=== PATIENT | female | born 1970 | race Caucasian/White ===

== ENCOUNTER 2021-08-03 09:19 | Emergency (ER) | payer OTHER, SELFPAY ==
[2021-08-03 09:46] VITALS: BP 133/78; PULSE 96; RESP 18; TEMP 36.6; O2SAT 99; BMI 29.2
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
[2021-08-03] MEDS: Acetaminophen 325 MG TABLET 975 MG PO (10:35)
[2021-08-03] MEDS: Cyclobenzaprine HCl 5 MG TABLET PO (10:35)
[2021-08-03 11:35] LABS: Appearance Urine CLEAR; Color Urine YELLOW; Glucose Urine UA NEG (NEG); Leukocyte Esterase Urine TRACE (NEG); Nitrite Urine POS (NEG); Specific Gravity - Urine 1.025 (1.005-1.025); UACC Culture Trigger YES; Urine Blood NEG (NEG); Urine Ketones NEG (NEG); Urine Protein NEG (NEG-TRACE)
[2021-08-03 12:02] LABS: Bacteria Urine 3+ /LPF; Mucus Urine 2+ /LPF; RBC Urine 0 /HPF (0); Squamous Epithelial Cell Urine 1+ /LPF
== END 2021-08-03 12:13 | disposition home or self-care (01) ==
PROVIDERS: Nurse Practitioner Family; Emergency Provider Emergency Medicine
DX: N39.0 Urinary tract infection, site not specified (principal); M54.16 Radiculopathy, lumbar region; M54.50 Low back pain, unspecified; I10 Essential (primary) hypertension
CPT/HCPCS: 81001; 87086; 87088; 87186; 99283; 99284

== ENCOUNTER 2022-05-25 10:35 | Inpatient (IN) | payer OTHER, SELFPAY ==
--- NOTE | ~2022-05-25 | CT_ITS ---
EXAMINATION: CT ABDOMEN AND PELVIS WITH CONTRAST CLINICAL INFORMATION: Left lower quadrant pain. Diarrhea. Anemia. COMPARISON: None TECHNIQUE: Multidetector volumetric images were obtained from the superior aspect of the liver through the pubic symphysis following administration 85 mL of Omnipaque 350 intravenous contrast. Sagittal and coronal reformatted images were obtained on the technologist's workstation. Oral contrast: No This CT examination was performed using dose optimization techniques as appropriate, variously including the following: *Automated exposure control *Adjustment of mA and/or kV according to patient size (this includes techniques or standardized protocols for targeted exams where dose is matched to indication/reason for exam; i.e. extremities or head) *Use of iterative reconstruction technique DLP: 451 mGy-cm FINDINGS: LUNG BASES: Right basilar atelectasis. The visualized cardiac structures are unremarkable. LIVER, GALLBLADDER, AND BILIARY TREE: The liver is normal in size, shape, and attenuation. No focal hepatic lesion or biliary ductal dilatation is present. The gallbladder is unremarkable with no evidence of radiopaque gallstones, gallbladder wall thickening, or obvious pericholecystic inflammatory changes. PANCREAS: Unremarkable. SPLEEN: The spleen is enlarged measuring 14.3 cm. Multiple hypoattenuating foci are seen throughout the splenic parenchyma. ADRENAL GLANDS: Unremarkable. KIDNEYS AND URETERS: The kidneys are normal in size, shape, and attenuation. No hydronephrosis or hydroureter. Multiple left renal calculi. At least 4 are seen with the largest at the lower pole measuring 0.4 cm, 8.5 cm from the posterior axillary line. BLADDER: Unremarkable. GASTROINTESTINAL TRACT: The stomach is unremarkable. Normal caliber small bowel. No obstruction. Normal appendix. Mild colonic stool burden. Abnormal appearance of the colon involving the descending colon, sigmoid colon, and rectum with wall thickening and inflammation surrounding. This is greatest at the sigmoid colon and rectum. No free air or free fluid. ABDOMINAL WALL: No significant hernia is appreciated. LYMPH NODES: Normal. VASCULAR: Unremarkable. PELVIC VISCERA: The uterus and adnexa are unremarkable. OSSEOUS STRUCTURES: No acute or suspicious osseous abnormality. Mild degenerative changes of the spine and hips. CT/CT abdomen pelvis w IV con IMPRESSION: 1. Colitis involving the descending colon, sigmoid colon, and rectum. This is greatest at the sigmoid colon and rectum. 2. Splenomegaly with multiple hypoattenuating foci throughout the splenic parenchyma. This is nonspecific. In an infectious setting, splenic abscesses must be considered. 3. Nonobstructing left renal calculi. Fleischner guidelines were followed.
--- NOTE | 2022-05-25 11:12 | ED.ABDPAIN ---
HPI - Abdominal Pain General Chief Complaint: Abdominal Pain <RAQUEL Callejas - Last Filed: 05/25/22 11:56> Stated Complaint: l side pain <RAQUEL Callejas - Last Filed: 05/25/22 11:56> Time Seen by Provider: 05/25/22 12:07 <RAQUEL Callejas - Last Filed: 05/25/22 11:56> Source: patient <RAQUEL Woods Last Filed: 05/25/22 15:46> Mode of arrival: ambulatory <RAQUEL Woods Last Filed: 05/25/22 15:46> Limitations: no limitations <RAQUEL Woods Last Filed: 05/25/22 15:46> History of Present Illness HPI narrative: 51 year old female with PMH of asthma, migraine, HTN, hypothyroidism s/p thyroidectomy, herniated disc, sciatica c/o left lower aching abdominal pain associated with mucusy, nonbloody diarrhea for the past week. She reports hypersensitivity to any fluid or food intake which triggers the diarrhea and decreased PO intake. She reports an episode of nausea that resolved and denies any bloody stool,vomiting, fever, headache, sick contact or recent travel. In <RAQUEL Woods - Last Filed: 05/25/22 15:46> MD elicited complaint: abdominal pain <RAQUEL Woods - Last Filed: 05/25/22 15:46> Pertinent past history: none <RAQUEL Woods Last Filed: 05/25/22 15:46> Onset (ago): week(s) (Symptoms started last week) <RAQUEL Woods Last Filed: 05/25/22 15:46> Pain Consistency: intermittent <RAQUEL Woods Last Filed: 05/25/22 15:46> Location: LLQ <RAQUEL Woods Last Filed: 05/25/22 15:46> Severity: moderate <RAQUEL Woods Last Filed: 05/25/22 15:46> Quality: aching <RAQUEL Woods Last Filed: 05/25/22 15:46> Radiation: none <RAQUEL Woods Last Filed: 05/25/22 15:46> Migration to: no migration <RAQUEL Woods Last Filed: 05/25/22 15:46> Exacerbating factors: eating <RAQUEL Woods Last Filed: 05/25/22 15:46> Relieving factors: nothing <RAQUEL Woods Last Filed: 05/25/22 15:46> Associated symptoms: nausea and diarrhea <RAQUEL Woods Last Filed: 05/25/22 15:46> Related Data Home Medications: Previous Rx's Medication Instructions Recorded nitrofurantoin 100 mg PO BID 5 days #10 caps 08/03/21 monohydrate/macrocrystals 100 mg capsule (Macrobid) <RAQUEL Callejas Last Filed: 05/25/22 11:56> Allergies/Adverse Reactions: Allergies Allergy/AdvReac Type Severity Reaction Status Date / Time ibuprofen [From MOTRIN] Allergy Mild ITCHING Verified 08/03/21 09:49 aspirin [ASPIRIN] Allergy Unknown RASH Verified 08/03/21 09:49 SEAFOOD Allergy Unknown RASH Uncoded 03/25/20 18:28 <RAQUEL Callejas Last Filed: 05/25/22 11:56> Review of Systems Review of Systems Constitutional: No Fever, No Chills ENT/Mouth: No sore throat, No Rhinorrhea, No Swallowing Difficulty Eyes: No Eye Pain, No Swelling, No Redness Cardiovascular: No Chest Pain, No SOB, No Orthopnea, No Edema Respiratory: No Cough, No Sputum, No Wheezing, No dyspnea Gastrointestinal: + Nausea, No Vomiting,+ Diarrhea, +abdominal Pain, No Hematochezia, No Melena Genitourinary: No Dysuria, No Urinary Frequency, No Hematuria Musculoskeletal: No joint pain, No Myalgias Skin: No Skin Lesions, No rash Neuro: + Weakness, No Numbness, No Dizziness, No Headache Heme/Lymph: No Bruising, No Lymphadenopathy <RAQUEL Woods Last Filed: 05/25/22 15:46> PMFSH Past Medical History Attestation statement: The following information was validated with the patient. <RAQUEL Woods Last Filed: 05/25/22 15:46> Medical History: Medical History Anxiety Asthma HTN (hypertension) Migraine Thyroid disease <RAQUEL Callejas - Last Filed: 05/25/22 11:56> Social History Social History: Social History Advance Directives: No Advance Directives Information Provided: Yes <RAQUEL Callejas - Last Filed: 05/25/22 11:56> Physical Exam ED Vital Signs: Vital Signs - 24 hr 05/25/22 11:13 Temperature 98.3 F Pulse Rate 90 Respiratory Rate 16 Blood Pressure 106/49 L Pulse Oximetry 99 Oxygen Delivery Method Room Air BMI result Body Mass Index 29.5 <RAQUEL Callejas - Last Filed: 05/25/22 11:56> Vital Signs - 24 hr 05/25/22 11:13 Temperature 98.3 F Pulse Rate 90 Respiratory Rate 16 Blood Pressure 106/49 L Pulse Oximetry 99 Oxygen Delivery Method Room Air BMI result Body Mass Index 29.5 <RAQUEL Woods - Last Filed: 05/25/22 15:46> .Appearance: Alert. Oriented X3.+ Slightly jaundiced in No acute distress. Pale Eyes: Pupils equal, round and reactive to light. No scleral icterua, conjunctival pallor ENT: Pharynx normal. Neck: Normal inspection. Neck supple. CVS: Normal heart rate and rhythm. Pulses normal. Respiratory: No respiratory distress. Breath sounds normal. Abdomen: Soft and non distended, +Guarding, +LLQ abdominal tenderness. +BS x4 Skin: Skin warm and dry.+slightly jaundiced. Normal skin turgor. Extremities: No lower extremity edema. Neuro: Oriented X 3. No motor deficit. No sensory deficit. <RAQUEL Woods - Last Filed: 05/25/22 15:46> Course Course Course Narrative: RME--51yo F c/o LLQ abd pain, vomiting and diarrhea x 1wk with decreased PO intake. No bloody BMs, no fever, dysuria, no flank pain Labs, & UA ordered in triage -1154--received call from lab patient with critically low hematocrit of 20.7 > charge nurse aware <RAQUEL Callejas - Last Filed: 05/25/22 11:56> 51 year old female with PMH of asthma, migraine, HTN, hypothyroidism s/p thyroidectomy, herniated disk , sciatica c/o left lower aching abdominal pain associated with mucussy diarrhea for the past week with decreased PO intake. No bloody BMs, no fever, dysuria, no flank pain Labs, & UA ordered in triage -1154--received call from lab patient with critically low hematocrit of 20.7 > charge nurse aware. labs c/w hemolysis. unclear etiology. check saravanan. Hematology consult. Plan for transfusion and admission Hold off antibiotics for now. Patient agrees with plan. Hospitalist has been tiger [facility] and for admission <RAQUEL Woods - Last Filed: 05/25/22 15:46> Consultations Consultation #1: Hematology Dr. Saldana <RAQUEL Woods - Last Filed: 05/25/22 15:46> Medications Administered Discontinued Medications Generic Name Dose Route Start Last Admin Trade Name Freq PRN Reason Stop Dose Admin Iohexol 100 ml 05/25/22 14:17 05/25/22 14:20 Iohexol 350 Mg/Ml 100 Ml Infus..Btl IV 05/25/22 14:18 85 ml ONCE ONE Administration <RAQUEL Callejas - Last Filed: 05/25/22 11:56> Medications Administered Discontinued Medications Generic Name Dose Route Start Last Admin Trade Name Freq PRN Reason Stop Dose Admin Iohexol 100 ml 05/25/22 14:17 05/25/22 14:20 Iohexol 350 Mg/Ml 100 Ml Infus..Btl IV 05/25/22 14:18 85 ml ONCE ONE Administration <RAQUEL Woods - Last Filed: 05/25/22 15:46> MDM - Abdominal Pain MDM Narrative Medical decision making narrative: 51 year old female with PMH of asthma, migraine, HTN, hypothyroidism s/p thyroidectomy, herniated catie , sciatica c/o left lower aching abdominal pain associated with mucussy diarrhea for the past week. She reports hypersensitivity to any fluid or food intake which triggers the diarrhea and decreased PO intake. On exam ,VSS, lung CTA, LLQ tenderness on palpation, slightly jaundice. Concern for colitis vs Diverticulitis. Plan: CT abdomen, Labs, Occult blood <RAQUEL Woods - Last Filed: 05/25/22 15:46> Medical Records Attestation: I reviewed the patient's medical records. <RAQUEL Woods - Last Filed: 05/25/22 15:46> Lab Data Attestation: I reviewed the patient's lab results. <RAQUEL Woods - Last Filed: 05/25/22 15:46> Result diagrams: : 05/25/22 11:22 05/25/22 11:22 <RAQUEL Callejas - Last Filed: 05/25/22 11:56> Labs: Lab Results 05/25/22 05/25/22 05/25/22 Range/Units 11: 11:22 14:46 WBC 4.6 L (4.8-10.8) X10*3/uL RBC 1.79 L (4.20-5.50) X10*6/uL Hgb 7.4 L (12.0-16.0) g/dl Hct 20.7 L* (37.0-47.0) % MCV 115.6 H (80.0-98.0) fL MCH 41.3 H (27.0-33.0) pg MCHC 35.7 H (31.0-35.0) g/dl RDW 18.7 H (11.0-16.0) % Plt Count 139 L (160-400) X10*3/uL MPV 10.7 (9.4-12.3) fL Immature Gran % (Auto) 1.5 H (0.0-0.4) % Neut % (Auto) 56.5 (45-73) % Lymph % (Auto) 31.9 (20-40) % [place] % (Auto) 5.6 (2-11) % Eos % (Auto) 4.3 H (0-4) % Baso % (Auto) 0.2 (0-2) % Lymph # (Auto) 1.5 (1.2-4.9) X10*3/uL [place] # (Auto) 0.3 (0.1-1.2) X10*3/uL Eos # (Auto) 0.2 (0.0-0.4) X10*3/uL Baso # (Auto) 0.0 (0.0-0.2) X10*3/uL Abs Immat Gran (auto) 0.07 H (0.00-0.03) X10*3/uL Absolute Neuts (auto) 2.6 (2.0-8.3) x10*3/uL Absolute Nucleated RBC 0.050 H (0.0-0.012) X10*3/uL Nucleated RBC % (auto) 1.1 H (0.0-0.2) /100WBC Absolute Retic 0.068 (0.026-0.095) X10*6/uL Percent Retic 3.7 H (0.5-1.8) % Immature Retic Fraction 21.3 H (3.0-15.9) % Retic Hgb Equivalent 46.8 H (30.0-35.0) pg Sodium 139 (135-145) mmol/L Potassium 4.5 (3.3-5.1) mmol/L Chloride 103 (96-108) mmol/L Carbon Dioxide 27 (22-29) mmol/L Anion Gap 14 (12-20) BUN 16 (9-16) mg/dL Creatinine 1.16 (0.5-1.4) mg/dL Estim Creat Clear Calc 50.4 Estimated GFR 49 Random Glucose 108 (60-115) mg/dL Calcium 9.6 (8.4-10.2) mg/dL Magnesium 1.5 L (1.6-2.6) mg/dL Iron 99 (30-160) mcg/dL TIBC 278 (228-428) mcg/dL % Saturation 36 (15-50) % Unsat Iron Binding 179 ug/dL Total Bilirubin 2.3 H (0.0-1.0) mg/dL Direct Bilirubin 1.1 H (0.0-0.5) mg/dL AST 120 H (5-31) U/L ALT 23 (0-31) U/L Alkaline Phosphatase 65 (39-117) U/L Lactate Dehydrogenase 3152 H (122-220) U/L Total Protein 7.2 (6.5-8.0) g/dL Albumin 4.0 (3.5-5.0) g/dL Lipase 59 (8-78) U/L Blood Type A Positive Antibody Screen NEGATIVE FRED, Polyspecific Positive FRED Work-up Crossmatch See Detail 05/25/22 Range/Units 14:46 WBC (4.8-10.8) X10*3/uL RBC (4.20-5.50) X10*6/uL Hgb (12.0-16.0) g/dl Hct (37.0-47.0) % MCV (80.0-98.0) fL MCH (27.0-33.0) pg MCHC (31.0-35.0) g/dl RDW (11.0-16.0) % Plt Count (160-400) X10*3/uL MPV (9.4-12.3) fL Immature Gran % (Auto) (0.0-0.4) % Neut % (Auto) (45-73) % Lymph % (Auto) (20-40) % [place] % (Auto) (2-11) % Eos % (Auto) (0-4) % Baso % (Auto) (0-2) % Lymph # (Auto) (1.2-4.9) X10*3/uL [place] # (Auto) (0.1-1.2) X10*3/uL Eos # (Auto) (0.0-0.4) X10*3/uL Baso # (Auto) (0.0-0.2) X10*3/uL Abs Immat Gran (auto) (0.00-0.03) X10*3/uL Absolute Neuts (auto) (2.0-8.3) x10*3/uL Absolute Nucleated RBC (0.0-0.012) X10*3/uL Nucleated RBC % (auto) (0.0-0.2) /100WBC Absolute Retic (0.026-0.095) X10*6/uL Percent Retic (0.5-1.8) % Immature Retic Fraction (3.0-15.9) % Retic Hgb Equivalent (30.0-35.0) pg Sodium (135-145) mmol/L Potassium (3.3-5.1) mmol/L Chloride (96-108) mmol/L Carbon Dioxide (22-29) mmol/L Anion Gap (12-20) BUN (9-16) mg/dL Creatinine (0.5-1.4) mg/dL Estim Creat Clear Calc Estimated GFR Random Glucose (60-115) mg/dL Calcium (8.4-10.2) mg/dL Magnesium (1.6-2.6) mg/dL Iron (30-160) mcg/dL TIBC (228-428) mcg/dL % Saturation (15-50) % Unsat Iron Binding ug/dL Total Bilirubin (0.0-1.0) mg/dL Direct Bilirubin (0.0-0.5) mg/dL AST (5-31) U/L ALT (0-31) U/L Alkaline Phosphatase (39-117) U/L Lactate Dehydrogenase (122-220) U/L Total Protein (6.5-8.0) g/dL Albumin (3.5-5.0) g/dL Lipase (8-78) U/L Blood Type Antibody Screen FRED, Polyspecific NEGATIVE Positive FRED Work-up TNP Crossmatch <RAQUEL Callejas - Last Filed: 05/25/22 11:56> Lab Results 05/25/22 05/25/22 05/25/22 Range/Units 11:22 11: 14:46 WBC 4.6 L (4.8-10.8) X10*3/uL RBC 1.79 L (4.20-5.50) X10*6/uL Hgb 7.4 L (12.0-16.0) g/dl Hct 20.7 L* (37.0-47.0) % MCV 115.6 H (80.0-98.0) fL MCH 41.3 H (27.0-33.0) pg MCHC 35.7 H (31.0-35.0) g/dl RDW 18.7 H (11.0-16.0) % Plt Count 139 L (160-400) X10*3/uL MPV 10.7 (9.4-12.3) fL Immature Gran % (Auto) 1.5 H (0.0-0.4) % Neut % (Auto) 56.5 (45-73) % Lymph % (Auto) 31.9 (20-40) % [place] % (Auto) 5.6 (2-11) % Eos % (Auto) 4.3 H (0-4) % Baso % (Auto) 0.2 (0-2) % Lymph # (Auto) 1.5 (1.2-4.9) X10*3/uL [place] # (Auto) 0.3 (0.1-1.2) X10*3/uL Eos # (Auto) 0.2 (0.0-0.4) X10*3/uL Baso # (Auto) 0.0 (0.0-0.2) X10*3/uL Abs Immat Gran (auto) 0.07 H (0.00-0.03) X10*3/uL Absolute Neuts (auto) 2.6 (2.0-8.3) x10*3/uL Absolute Nucleated RBC 0.050 H (0.0-0.012) X10*3/uL Nucleated RBC % (auto) 1.1 H (0.0-0.2) /100WBC Absolute Retic 0.068 (0.026-0.095) X10*6/uL Percent Retic 3.7 H (0.5-1.8) % Immature Retic Fraction 21.3 H (3.0-15.9) % Retic Hgb Equivalent 46.8 H (30.0-35.0) pg Sodium 139 (135-145) mmol/L Potassium 4.5 (3.3-5.1) mmol/L Chloride 103 (96-108) mmol/L Carbon Dioxide 27 (22-29) mmol/L Anion Gap 14 (12-20) BUN 16 (9-16) mg/dL Creatinine 1.16 (0.5-1.4) mg/dL Estim Creat Clear Calc 50.4 Estimated GFR 49 Random Glucose 108 (60-115) mg/dL Calcium 9.6 (8.4-10.2) mg/dL Magnesium 1.5 L (1.6-2.6) mg/dL Iron 99 (30-160) mcg/dL TIBC 278 (228-428) mcg/dL % Saturation 36 (15-50) % Unsat Iron Binding 179 ug/dL Total Bilirubin 2.3 H (0.0-1.0) mg/dL Direct Bilirubin 1.1 H (0.0-0.5) mg/dL AST 120 H (5-31) U/L ALT 23 (0-31) U/L Alkaline Phosphatase 65 (39-117) U/L Lactate Dehydrogenase 3152 H (122-220) U/L Total Protein 7.2 (6.5-8.0) g/dL Albumin 4.0 (3.5-5.0) g/dL Lipase 59 (8-78) U/L Blood Type A Positive Antibody Screen NEGATIVE FRED, Polyspecific Positive FRED Work-up Crossmatch See Detail 05/25/22 Range/Units 14:46 WBC (4.8-10.8) X10*3/uL RBC (4.20-5.50) X10*6/uL Hgb (12.0-16.0) g/dl Hct (37.0-47.0) % MCV (80.0-98.0) fL MCH (27.0-33.0) pg MCHC (31.0-35.0) g/dl RDW (11.0-16.0) % Plt Count (160-400) X10*3/uL MPV (9.4-12.3) fL Immature Gran % (Auto) (0.0-0.4) % Neut % (Auto) (45-73) % Lymph % (Auto) (20-40) % [place] % (Auto) (2-11) % Eos % (Auto) (0-4) % Baso % (Auto) (0-2) % Lymph # (Auto) (1.2-4.9) X10*3/uL [place] # (Auto) (0.1-1.2) X10*3/uL Eos # (Auto) (0.0-0.4) X10*3/uL Baso # (Auto) (0.0-0.2) X10*3/uL Abs Immat Gran (auto) (0.00-0.03) X10*3/uL Absolute Neuts (auto) (2.0-8.3) x10*3/uL Absolute Nucleated RBC (0.0-0.012) X10*3/uL Nucleated RBC % (auto) (0.0-0.2) /100WBC Absolute Retic (0.026-0.095) X10*6/uL Percent Retic (0.5-1.8) % Immature Retic Fraction (3.0-15.9) % Retic Hgb Equivalent (30.0-35.0) pg Sodium (135-145) mmol/L Potassium (3.3-5.1) mmol/L Chloride (96-108) mmol/L Carbon Dioxide (22-29) mmol/L Anion Gap (12-20) BUN (9-16) mg/dL Creatinine (0.5-1.4) mg/dL Estim Creat Clear Calc Estimated GFR Random Glucose (60-115) mg/dL Calcium (8.4-10.2) mg/dL Magnesium (1.6-2.6) mg/dL Iron (30-160) mcg/dL TIBC (228-428) mcg/dL % Saturation (15-50) % Unsat Iron Binding ug/dL Total Bilirubin (0.0-1.0) mg/dL Direct Bilirubin (0.0-0.5) mg/dL AST (5-31) U/L ALT (0-31) U/L Alkaline Phosphatase (39-117) U/L Lactate Dehydrogenase (122-220) U/L Total Protein (6.5-8.0) g/dL Albumin (3.5-5.0) g/dL Lipase (8-78) U/L Blood Type Antibody Screen FRED, Polyspecific NEGATIVE Positive FRED Work-up TNP Crossmatch <RAQUEL Woods - Last Filed: 05/25/22 15:46> Critical Care Time Critical Care Time Critical Care Time: Yes <RAQUEL Woods - Last Filed: 05/25/22 15:46> Total Critical Care Time: 44 <RAQUEL Woods - Last Filed: 05/25/22 15:46> Attestation: I have personally provided critical care time exclusive of time spent on separately billable procedures. Time includes review of lab data, radiology results, discussion with consultants, and monitoring for potential decompensation. Intervention performed as documented. <RAQUEL Woods Last Filed: 05/25/22 15:46> Discharge Plan Discharge Clinical Impression: Hemolytic anemia, Colitis <RAQUEL Callejas Last Filed: 05/25/22 11:56> Patient Disposition: Admitted As Inpatient <RAQUEL Callejas Last Filed: 05/25/22 11:56> Prescriptions: No Action nitrofurantoin monohyd/m-cryst [Macrobid] 100 mg capsule 100 mg PO BID 5 Days Qty: 10 0RF Rx Instructions: must administer with a meal/food <RAQUEL Callejas - Last Filed: 05/25/22 11:56>
[2022-05-25 11:13] VITALS: BP 106/49; PULSE 90; RESP 16; TEMP 36.8; O2SAT 99; BMI 29.5
[2022-05-25 11:35] LABS: MANUAL DIFF FLAG NO
[2022-05-25 11:49] LABS: Basophils Percent Auto 0.2 % (0-2); Eosinophils Absolute Auto 0.2 X10*3/uL (0.0-0.4); Eosinophils Percent Auto 4.3 % (0-4); Hemoglobin 7.4 g/dl (12.0-16.0); Imm Gran Abs Auto 0.07 X10*3/uL (0.00-0.03); Imm Gran Pct Auto 1.5 % (0.0-0.4); Lymphocytes Absolute Auto 1.5 X10*3/uL (1.2-4.9); Lymphocytes Percent Auto 31.9 % (20-40); Mean Corpuscular HGB Conc 35.7 g/dl (31.0-35.0); Mean Corpuscular Hemoglobin 41.3 pg (27.0-33.0); Mean Platelet Volume 10.7 fL (9.4-12.3); Monocytes Absolute Auto 0.3 X10*3/uL (0.1-1.2); Monocytes Percent Auto 5.6 % (2-11); Neutrophils Absolute Auto 2.6 x10*3/uL (2.0-8.3); Neutrophils Percent Auto 56.5 % (45-73); Platelet Count 139 X10*3/uL (160-400); Red Blood Count 1.79 X10*6/uL (4.20-5.50); Red Cell Distribution Width 18.7 % (11.0-16.0); White Blood Count 4.6 X10*3/uL (4.8-10.8)
[2022-05-25 11:53] LABS: Hematocrit 20.7 % (37.0-47.0); Mean Corpuscular Volume 115.6 fL (80.0-98.0); NRBC Pct Auto 1.1 /100WBC (0.0-0.2)
[2022-05-25 11:59] LABS: Alanine Aminotransferase 23 U/L (0-31); Alkaline Phosphatase 65 U/L (39-117); Anion Gap 14 (12-20); Aspartate Amino Transferase 120 U/L (5-31); Bilirubin Direct 1.1 mg/dL (0.0-0.5); Bilirubin Total 2.3 mg/dL (0.0-1.0); Blood Urea Nitrogen 16 mg/dL (9-16); Calcium 9.6 mg/dL (8.4-10.2); Carbon Dioxide 27 mmol/L (22-29); Chloride 103 mmol/L (96-108); Creatinine Clr Calc Pharmacy 50.4; Estimated Glomerular Filt Rate 49; Glucose Random 108 mg/dL (60-115); Lipase 59 U/L (8-78); Magnesium 1.5 mg/dL (1.6-2.6); Potassium 4.5 mmol/L (3.3-5.1); Sodium 139 mmol/L (135-145); Total Protein 7.2 g/dL (6.5-8.0)
[2022-05-25 12:32] LABS: Immature Retic Fraction 21.3 % (3.0-15.9); Iron 99 mcg/dL (30-160); Percent Iron Saturation 36 % (15-50); Retic HGB Equivalent 46.8 pg (30.0-35.0); Reticulocyte Percent 3.7 % (0.5-1.8); Reticulocytes Absolute 0.068 X10*6/uL (0.026-0.095); Total Iron Binding Capacity 278 mcg/dL (228-428); Unsaturated Iron Binding 179 ug/dL
[2022-05-25 13:13] LABS: Lactate Dehydrogenase 3152 U/L (122-220)
[2022-05-25] MEDS: iohexoL 350 MG/ML 100 ML INFUS..BTL IV (14:20)
[2022-05-25 15:48] LABS: C Reactive Protein 2.04 mg/dL (< or = 0.50)
--- NOTE | 2022-05-25 16:01 | PHA.MEDREC ---
Pharmacy Consult ? Medication Reconciliation Pharmacy has completed the medication reconciliation.
[2022-05-25] MEDS: Magnesium Sulfate/H2O 2 GM/50 ML PIGGYBACK IV (16:57)
[2022-05-25 16:59] VITALS: BP 110/56; PULSE 91; RESP 13; O2SAT 98
--- NOTE | 2022-05-25 17:05 | P.HPHOSP_ITS ---
History of Present Illness Date of Service: 05/25/22 Attending physician on admission: John Lott Chief Complaint: abdominal pain / nonbloody diarrhea 51-year-old female patient with past medical history of asthma, migraine, hypertension, hypothyroidism, history of iron deficiency anemia, status post thyroidectomy, history of sciatica presented to [facility] due to left lower quadrant abdominal pain of 1 day duration associated with nausea, and mucousy nonbloody diarrhea patient is unable to keep any food down due to recurrent episodes of diarrhea she denies associated fever, chills, rigors she denies any sick contacts she denies recent history of travel, denies recent use of antibiotics, patient lives at home with family, no other family member with similar symptoms, workup in the emergency room showed significant anemia hemoglobin 7.4, hematocrit 20.7, MCV 115, elevated retic count, normal iron studies, magnesium 1.5, LDH 3152, AST 120, total bili 2.3, CT abdomen and pelvis showed colitis involving the descending colon, sigmoid colon and rectum, splenomegaly with multiple hypoattenuating foci throughout the splenic parenchyma nonspecific, splenic abscesses can be considered, nonobstructing left renal calculi no adenopathy was noted, 1 unit of packed RBC ordered by ED physician patient is now being admitted to [facility] due to colitis, likely hemolytic anemia as well as splenic lesion concerning for infection. Review of Systems Review of Systems: General no headache no dizziness no fever chills. CVS no chest pain, no palpitation. Respiratory no cough no sputum production no respiratory distress. no urinary urgency no frequency Skin no rash Yes all other systems are reviewed and are negative PMFSH Medical History Anxiety Asthma HTN (hypertension) Migraine Thyroid disease Pertinent family history: GI mother of kidney failure, father is alive has seizure disorder Social History Alcohol intake: never Smoked in Last 30 Days: No Use of substances other than those prescribed or required for medical reasons: No Advance Directives: No Advance Directives Information Provided: Yes service: No Current occupational status: disabled Meds Allergies Allergy/AdvReac Type Severity Reaction Status Date / Time ibuprofen [From MOTRIN] Allergy Mild ITCHING Verified 08/03/21 09:49 aspirin [ASPIRIN] Allergy Unknown RASH Verified 08/03/21 09:49 SEAFOOD Allergy Unknown RASH Uncoded 03/25/20 18:28 Active Medications: Current Medications Acetaminophen (Acetaminophen 325 Mg Tablet) 650 mg PO Q6H PRN PRN Reason: Pain, Mild (Pain Scale 1-3) Magnesium Sulfate (Magnesium Sulfate/H2o) 2 gm in 50 mls @ 25 mls/hr IV ONCE ONE Stop: 05/25/22 17:47 Last Admin: 05/25/22 16:57 Dose: 25 mls/hr Lactated Ringer's (Lr) 1,000 mls @ 100 mls/hr IVCONT .Q10H [facility] Levofloxacin (Levaquin) 500 mg in 100 mls @ 100 mls/hr IV Q24H [facility] Metronidazole (Flagyl) 500 mg in 100 mls @ 100 mls/hr IV Q8H [facility] Levothyroxine Sodium (Levothyroxine Sodium 125 Mcg Tablet) 125 mcg PO DAILY [facility] Melatonin (Melatonin 3 Mg Tablet) 3 mg PO BEDTIME PRN PRN Reason: Insomnia Morphine Sulfate (Morphine Sulfate 4 Mg/Ml Cartridge) 3 mg IVPUSH Q4H PRN; Protocol PRN Reason: Pain, Severe (Pain Scale 7-10) Ondansetron HCl (Ondansetron Hcl 4 Mg/2 Ml Vial) 4 mg IVPUSH Q8H PRN PRN Reason: Nausea and Vomiting Pharmacy Consult (Consult Rx Perform Med Rec) 1 each MISCELLANE ONCE PRN PRN Reason: Consult order Propranolol HCl (Propranolol Hcl La 60 Mg Cap.Sa.24h) 120 mg PO DAILY [facility]; Protocol Sodium Chloride (0.9 % Sodium Chloride Flush 3 Ml Syringe) 3 ml IVFLUSH QSHIFT [facility] Home Medications Medication Instructions Recorded Confirmed Last Taken Type levothyroxine 125 mcg tablet 1 tab PO DAILY 05/25/22 05/25/22 05/25/22 History multivitamin 1 tab PO DAILY 05/25/22 05/25/22 05/25/22 History propranolol 120 mg capsule,24 1 cap PO DAILY 05/25/22 05/25/22 05/25/22 History hr,extended release Physical Exam Vital Signs and Narrative: Vital Signs: Last Vital Signs Temp 98.3 F 05/25/22 11:13 Pulse 91 05/25/22 16:59 Resp 13 05/25/22 16:59 BP 110/56 L 05/25/22 16:59 Pulse Ox 98 05/25/22 16:59 O2 Del Method 05/25/22 16:59 BMI result Body Mass Index 29.5 Const: Other: General awake alert x3, in no acute distress. anicteric sclera Neck is supple no JVD. CVS regular rate rhythm, Respiratory lungs clear to auscultation, no respiratory distress, no wheeze, no rhonchi. Gastrointestinal abdomen soft, positive tenderness left lower quadrant with palpation, bowel sounds audible, no guarding , no rigidity. Extremities no edema. Neuro nonfocal patient moving all 4 extremity speech clear. Skin no rash/+ pallor musculoskeletal no deformity Results Labs CBC and Chem 7: 05/26/22 05:44 05/26/22 05:44 Labs: Laboratory Results - last 24 hr 05/25/22 05/25/22 05/25/22 11:22 11:22 14:46 MCV 115.6 H MCH 41.3 H MCHC 35.7 H RDW 18.7 H Plt Count 139 L MPV 10.7 Immature Gran % (Auto) 1.5 H Neut % (Auto) 56.5 Lymph % (Auto) 31.9 [place] % (Auto) 5.6 Eos % (Auto) 4.3 H Baso % (Auto) 0.2 Lymph # (Auto) 1.5 [place] # (Auto) 0.3 Eos # (Auto) 0.2 Baso # (Auto) 0.0 Abs Immat Gran (auto) 0.07 H Absolute Neuts (auto) 2.6 Absolute Nucleated RBC 0.050 H Nucleated RBC % (auto) 1.1 H Absolute Retic 0.068 Percent Retic 3.7 H Immature Retic Fraction 21.3 H Retic Hgb Equivalent 46.8 H Anion Gap 14 Estim Creat Clear Calc 50.4 Estimated GFR 49 Random Glucose 108 Calcium 9.6 Magnesium 1.5 L Iron 99 TIBC 278 % Saturation 36 Unsat Iron Binding 179 Total Bilirubin 2.3 H Direct Bilirubin 1.1 H AST 120 H ALT 23 Alkaline Phosphatase 65 Lactate Dehydrogenase 3152 H C-Reactive Protein 2.04 H Total Protein 7.2 Albumin 4.0 Lipase 59 Blood Type A Positive Antibody Screen NEGATIVE FRED, Polyspecific Positive FRED Work-up Crossmatch See Detail 05/25/22 14:46 MCV MCH MCHC RDW Plt Count MPV Immature Gran % (Auto) Neut % (Auto) Lymph % (Auto) [place] % (Auto) Eos % (Auto) Baso % (Auto) Lymph # (Auto) [place] # (Auto) Eos # (Auto) Baso # (Auto) Abs Immat Gran (auto) Absolute Neuts (auto) Absolute Nucleated RBC Nucleated RBC % (auto) Absolute Retic Percent Retic Immature Retic Fraction Retic Hgb Equivalent Anion Gap Estim Creat Clear Calc Estimated GFR Random Glucose Calcium Magnesium Iron TIBC % Saturation Unsat Iron Binding Total Bilirubin Direct Bilirubin AST ALT Alkaline Phosphatase Lactate Dehydrogenase C-Reactive Protein Total Protein Albumin Lipase Blood Type Antibody Screen FRED, Polyspecific NEGATIVE Positive FRED Work-up TNP Crossmatch Imaging Radiologist's Impressions: Impressions Abdomen/Pelvis CT 05/25/22 14:24 IMPRESSION: 1. Colitis involving the descending colon, sigmoid colon, and rectum. This is greatest at the sigmoid colon and rectum. 2. Splenomegaly with multiple hypoattenuating foci throughout the splenic parenchyma. This is nonspecific. In an infectious setting, splenic abscesses must be considered. 3. Nonobstructing left renal calculi. Fleischner guidelines were followed. Assessment and Plan (1) Hemolytic anemia: Status: Acute (2) Colitis: Status: Acute (3) Pancytopenia: Status: Acute Plan 51-year-old female patient with past medical history significant for anxiety, asthma, hypertension, migraine, thyroid disease and prior history of iron deficiency anemia previously treated with shovel mechanic at [facility] and has received iron infusion, last iron studies in June 2021 were unremarkable, last hematocrit was 37.3 in June of 2021 presented to [facility] due to left lower quadrant abdominal discomfort associated with nausea and bloody diarrhea of 1 week duration, diagnosed to have colitis, lab work s uggestive of significant a anemia with low WBC and platelet count with elevated LDH, retic count and bilirubin concerning for hemolysis patient will be admitted for continued monitoring and treatment acute anemia/ pancytopenia no active bleeding noted, patient denies bloody diarrhea no melena, no hematochezia , no hematemesis,no hematuria elevated bili, LDH and retic count suggestive of hemolysis question secondary to infection, immune mediated, rule out DIC haptoglobin ,carl test pending, will check B12 folate, iron studies within normal range will transfuse 1 unit of packed RBC repeat CBC and transfuse as needed patient denies new medications hematology consult obtained acute colitis will treat with IV Levaquin and Flagyl follow blood cultures and clinical course closely multiple hypo attenuated lesions and spleen concerning for abscess continue IV Flagyl and Levaquin as above, check stool studies, id consult, CT abdomen and pelvis showed no lymphadenopathy suggestive of lymphoma id consult elevated LFTs question due to infection, follow liver panel discuss further testing with ID mild intermittent asthma no acute exacerbation hypothyroidism continue Synthroid DVT prophylaxis with compression boots Code status full code in my clinical opinion patient will need 2 night inpatient stay due to acute colitis requiring IV antibiotic and further workup for pancytopenia and profound anemia requiring blood transfusion. Quality Stroke Does the patient have a stroke diagnosis?: No VTE Prior VTE?: No VTE Risk Level:: Medical - moderate - high VTE Device Contraindication: N/A - Device Ordered VTE Drug Contraindication: Treatment Not Indicated
[2022-05-25 17:14] LABS: COVID-19 Test Negative (Negative); IDNOW Serial# 16C4AD1C
[2022-05-25 17:28] VITALS: BP 112/62; PULSE 90; RESP 12; TEMP 37
[2022-05-25 17:36] LABS: Color Urine Dark Yellow; Glucose Urine UA Negative (Negative); Leukocyte Esterase Urine Large (3+) (Negative); Nitrite Urine Positive (Negative); PH 5.5 (5.0-9.0); Specific Gravity - Urine 1.015 (1.005-1.025); UMIC TRIGGER UACC YES; Urine Blood Trace (Negative); Urine Ketones Negative (Negative); Urine Protein 30 (1+) mg/dL (Neg-Trace)
[2022-05-25 17:38] LABS: Bacteria Urine 4+ (None Seen); Squamous Epithelial Cell Urine 0-2 /HPF (0-2); UACC Culture Trigger YES; WBC Urine >50 /HPF (0-5)
[2022-05-25 17:39] LABS: Appearance Urine Hazy
[2022-05-25 17:46] VITALS: BP 104/58; PULSE 89; RESP 12; TEMP 37
[2022-05-25] MEDS: levoFLOXacin/D5W 500 MG/100 ML PIGGYBACK 100 MG IV (18:44)
--- NOTE | 2022-05-25 20:01 | PC.NURSE ---
blood transfusion complete @2000. patient disconnected from bus monitor and assisted to bathroom with this RN. patient steady on her feet, ambulatory with steady gait. denies dizziness or lightheadedness, reports feeling great after this blood transfusion. will obtain vital signs when patient returns from bathroom and is reconnected to monitor.
[2022-05-25 20:05] VITALS: BP 116/69; PULSE 93; RESP 15; TEMP 36.8
[2022-05-25] MEDS: metroNIDAZOLE/NS 500 MG/100 ML PIGGYBACK 100 MG IV (20:08)
[2022-05-25] MEDS: Lactated Ringers 1,000 ML 100 ML IVCONT (20:09)
--- NOTE | 2022-05-25 22:25 | PC.NURSE ---
patient ambulatory to the bathroom. gait steady. able to make needs known. educated to use call bansal and wait for assistance before getting out of bed. verbalized understanding.
[2022-05-25 23:36] VITALS: BP 113/64; PULSE 86; RESP 24; TEMP 36.3; O2SAT 98
[2022-05-26] VITALS (13 sets, daily range): BP systolic 103–131; BP diastolic 60–76; PULSE 78–85; RESP 16–21; TEMP 36–37.1; O2SAT 95–99
[2022-05-26] MEDS: metroNIDAZOLE/NS 500 MG/100 ML PIGGYBACK 100 MG IV ×3 (05:47→20:09)
[2022-05-26] MEDS: Lactated Ringers 1,000 ML 100 ML IVCONT ×2 (05:47→17:33)
--- NOTE | 2022-05-26 05:53 | PC.NURSE ---
patient awake, alert, oriented x4. watching tv in bed. denies pain at this time. call bansal within reach, able to make needs known.
[2022-05-26 07:26] LABS: Hemoglobin 7.3 g/dl (12.0-16.0); Mean Corpuscular HGB Conc 34.8 g/dl (31.0-35.0); Mean Corpuscular Hemoglobin 38.4 pg (27.0-33.0); Mean Corpuscular Volume 110.5 fL (80.0-98.0); Mean Platelet Volume 10.4 fL (9.4-12.3); NRBC Pct Auto 0.7 /100WBC (0.0-0.2); Platelet Count 110 X10*3/uL (160-400); Red Cell Distribution Width 23.2 % (11.0-16.0); White Blood Count 2.8 X10*3/uL (4.8-10.8)
[2022-05-26] MEDS: Propranolol HCL LA 60 MG CAP.SA.24H 120 MG PO (07:37)
[2022-05-26] MEDS: Levothyroxine Sodium 125 MCG TABLET PO (07:37)
[2022-05-26 08:17] LABS: Anion Gap 10 (12-20); Blood Urea Nitrogen 13 mg/dL (9-16); Calcium 9.2 mg/dL (8.4-10.2); Carbon Dioxide 27 mmol/L (22-29); Chloride 108 mmol/L (96-108); Creatinine Clr Calc Pharmacy 58.5; Estimated Glomerular Filt Rate 58; Glucose Random 75 mg/dL (60-115); Potassium 4.4 mmol/L (3.3-5.1); Sodium 141 mmol/L (135-145)
[2022-05-26 08:32] LABS: Fibrinogen 485 MG/DL (259-690)
[2022-05-26 08:34] LABS: D Dimer High Sensitivity 2152 NG/ML; Partial Thromboplastin Time 31.7 SEC (26.0-36.4)
--- NOTE | 2022-05-26 08:45 | PC.NURSE ---
Dr Lott aware of HCT states she will transfuse.
[2022-05-26 11:15] LABS: Alanine Aminotransferase 18 U/L (0-31); Albumin Level 3.3 g/dL (3.5-5.0); Alkaline Phosphatase 52 U/L (39-117); Aspartate Amino Transferase 86 U/L (5-31); Bilirubin Direct 0.9 mg/dL (0.0-0.5); Bilirubin Total 1.8 mg/dL (0.0-1.0); Magnesium 1.8 mg/dL (1.6-2.6); Total Protein 6.2 g/dL (6.5-8.0)
--- NOTE | 2022-05-26 11:42 | MHC.CM.PN ---
Patient lives in an apartment with her and she required no services nor DME BUSINESS TRAVEL CONSULTANT. Home, self care is the goal and CM has initiated and will follow for dc planning. PCP is Dr. Gary Pitts and Patient received J&J/Covid vax only.
[2022-05-26 11:59] LABS: Folate 17.3 ng/mL (> or = 4.0); Vitamin B12 < 148 pg/mL (200-900)
--- NOTE | 2022-05-26 14:52 | HO.PM.IMPN ---
Subjective Subjective Date of Service: 05/26/22 Interval History: feeling better, left lower quadrant abdominal pain significantly improved diarrhea resolved denies fever chills, no nausea no vomiting no headache no lightheadedness or dizziness requesting to eat food, feels better after blood transfusion. Review of Systems Review of Systems: Yes all other systems are reviewed and are negative Physical Exam Vital Signs: Vital Signs: Last Vital Signs Temp 98.4 F 05/26/22 14:39 Pulse 78 05/26/22 14:39 Resp 16 05/26/22 14:39 BP 104/68 05/26/22 14:39 Pulse Ox 98 05/26/22 14:39 O2 Del Method 05/26/22 14:39 BMI result Body Mass Index 29.5 Const: Other: General? awake sonal rt x3, in no acute distress.? anicte chetna sclera Neck is supple no JVD. CV S? regular rate rh ythm, Respiratory lungs clear to aus cultation, no resp iratory distress, no wheeze, no rhon chi. Gastrointesti nal abdomen soft,? mild tenderness le ft lower quadrant with palpation, bela wel sounds audible , no guarding , no rigidity. Extremi ties no edema. Veronika ro nonfocal patien t moving all 4 ext remity speech tao r. Skin no rash/+? pallor musculoske letal no deformity psych appropriat e affect Objective Data Active Medications Acetaminophen (Acetaminophen 325 Mg Tablet) 650 mg PO Q6H PRN PRN Reason: Pain, Mild (Pain Scale 1-3) Levofloxacin (Levaquin) 500 mg in 100 mls @ 100 mls/hr IV Q24H [facility] Last Infusion: 05/25/22 19:44 Dose: 0 mls/hr Documented By: SERENA Metronidazole (Flagyl) 500 mg in 100 mls @ 100 mls/hr IV Q8H [facility] Last Infusion: 05/26/22 06:54 Dose: 100 mls/hr Documented By: SWATI Lactated Ringer's (Lr) 1,000 mls @ 100 mls/hr IVCONT .Q10H [facility] Last Admin: 05/26/22 05:47 Dose: 100 mls/hr Documented By: SWATI Levothyroxine Sodium (Levothyroxine Sodium 125 Mcg Tablet) 125 mcg PO DAILY [facility] Last Admin: 05/26/22 07:37 Dose: 125 mcg Documented By: MAX Melatonin (Melatonin 3 Mg Tablet) 3 mg PO BEDTIME PRN PRN Reason: Insomnia Morphine Sulfate (Morphine Sulfate 4 Mg/Ml Cartridge) 3 mg IVPUSH Q4H PRN; Protocol PRN Reason: Pain, Severe (Pain Scale 7-10) Ondansetron HCl (Ondansetron Hcl 4 Mg/2 Ml Vial) 4 mg IVPUSH Q8H PRN PRN Reason: Nausea and Vomiting Pharmacy Consult (Consult Rx Perform Med Rec) 1 each MISCELLANE ONCE PRN PRN Reason: Consult order Propranolol HCl (Propranolol Hcl La 60 Mg Cap.Sa.24h) 60 mg PO DAILY [facility]; Protocol Last Admin: 05/26/22 10:46 Dose: Not Given Documented By: MAX Non-Admin Reason: Previously Administered Sodium Chloride (0.9 % Sodium Chloride Flush 3 Ml Syringe) 3 ml IVFLUSH QSHIFT [facility] Last Admin: 05/26/22 09:18 Dose: Not Given Documented By: MAX Non-Admin Reason: IV Running Labs CBC & Chem 7: 05/26/22 05:44 05/26/22 05:44 Labs: Laboratory Results - last 24 hr 05/25/22 05/25/22 05/25/22 11:22 11:22 14:46 MCV MCH MCHC RDW Plt Count MPV Absolute Nucleated RBC Nucleated RBC % (auto) Smear Path Review SEE NOTE APTT Fibrinogen D-Dimer High Sensitivty Anion Gap Estim Creat Clear Calc Estimated GFR Random Glucose Calcium Magnesium Total Bilirubin Direct Bilirubin AST ALT Alkaline Phosphatase C-Reactive Protein 2.04 H Total Protein Albumin Vitamin B12 Folate Urine Color Urine Appearance Urine pH Ur Specific Stow Urine Protein Urine Glucose (UA) Urine Ketones Urine Blood Urine Nitrite Ur Leukocyte Esterase Urine RBC Urine WBC Ur Squamous Epith Cells Urine Bacteria Hyaline Casts COVID-19 (JUAREZ) COVID-19 Clin Com Blood Type A Positive Antibody Screen NEGATIVE FRED, Polyspecific Positive FRED Work-up Crossmatch See Detail 05/25/22 05/25/22 05/25/22 14:46 16:51 16:51 MCV MCH MCHC RDW Plt Count MPV Absolute Nucleated RBC Nucleated RBC % (auto) Smear Path Review APTT Fibrinogen D-Dimer High Sensitivty Anion Gap Estim Creat Clear Calc Estimated GFR Random Glucose Calcium Magnesium Total Bilirubin Direct Bilirubin AST ALT Alkaline Phosphatase C-Reactive Protein Total Protein Albumin Vitamin B12 Folate Urine Color Dark Yellow Urine Appearance Hazy Urine pH 5.5 Ur Specific Stow 1.015 Urine Protein 30 (1+) H Urine Glucose (UA) Negative Urine Ketones Negative Urine Blood Trace H Urine Nitrite Positive H Ur Leukocyte Esterase Large (3+) H Urine RBC 6-10 H Urine WBC >50 H Ur Squamous Epith Cells 0-2 Urine Bacteria 4+ Hyaline Casts 3-5 COVID-19 (JUAREZ) Negative COVID-19 Clin Com See Note Blood Type Antibody Screen FRED, Polyspecific NEGATIVE Positive FRED Work-up TNP Crossmatch 05/26/22 05/26/22 05/26/22 05:44 05:44 05:44 MCV 110.5 H D MCH 38.4 H MCHC 34.8 RDW 23.2 H Plt Count 110 L MPV 10.4 Absolute Nucleated RBC 0.020 H Nucleated RBC % (auto) 0.7 H Smear Path Review APTT Fibrinogen D-Dimer High Sensitivty Anion Gap 10 L Estim Creat Clear Calc 58.5 Estimated GFR 58 Random Glucose 75 Calcium 9.2 Magnesium 1.8 Total Bilirubin 1.8 H Direct Bilirubin 0.9 H AST 86 H ALT 18 Alkaline Phosphatase 52 C-Reactive Protein Total Protein 6.2 L Albumin 3.3 L Vitamin B12 < 148 L Folate 17.3 Urine Color Urine Appearance Urine pH Ur Specific Stow Urine Protein Urine Glucose (UA) Urine Ketones Urine Blood Urine Nitrite Ur Leukocyte Esterase Urine RBC Urine WBC Ur Squamous Epith Cells Urine Bacteria Hyaline Casts COVID-19 (JUAREZ) COVID-19 Clin Com Blood Type Antibody Screen FRED, Polyspecific Positive FRED Work-up Crossmatch 05/26/22 08:10 MCV MCH MCHC RDW Plt Count MPV Absolute Nucleated RBC Nucleated RBC % (auto) Smear Path Review APTT 31.7 Fibrinogen 485 D-Dimer High Sensitivty 2152 Anion Gap Estim Creat Clear Calc Estimated GFR Random Glucose Calcium Magnesium Total Bilirubin Direct Bilirubin AST ALT Alkaline Phosphatase C-Reactive Protein Total Protein Albumin Vitamin B12 Folate Urine Color Urine Appearance Urine pH Ur Specific Stow Urine Protein Urine Glucose (UA) Urine Ketones Urine Blood Urine Nitrite Ur Leukocyte Esterase Urine RBC Urine WBC Ur Squamous Epith Cells Urine Bacteria Hyaline Casts COVID-19 (JUAREZ) COVID-19 Clin Com Blood Type Antibody Screen FRED, Polyspecific Positive FRED Work-up Crossmatch Microbiology Microbiology Results: Microbiology 05/25/22 Unknown Urine Culture - Preliminary Urine clean catch - Urine soni top Gram negative tom Assessment and Plan (1) Pancytopenia: Status: Acute (2) Hemolytic anemia: Status: Acute (3) Colitis: Status: Acute (4) Vitamin B12 deficiency: Status: Acute Plan 51-year-old female patient with past medical history significant for anxiety, asthma, hypertension, migraine, thyroid disease and prior history of iron deficiency anemia previously treated with certified procedural coder at [facility] and has received iron infusion, last iron studies in June 2021 were unremarkable, last hematocrit was 37.3 in June of 2021 presented to [facility] due to left lower quadrant abdominal discomfort associated with nausea and bloody diarrhea of 1 week duration, diagnosed to have colitis, lab work suggestive of significant a anemia with low WBC and platelet count with elevated LDH, retic count and bilirubin concerning for hemolysis patient will be admitted for continued monitoring and treatment ?acute anemia/ pancytopenia ?status post 1 unit packed RBC hematocrit unchanged remains at 21 no active bleeding noted, patient denies bloody diarrhea no melena, no hematochezia , no hematemesis,no hematuria ?elevated bili, LDH and retic count suggestive of hemolysis question secondary to infection, carl test negative, normal fibrinogen and PTT , normal iron studies and folate ?low B12 likely pancytopenia due to B12 deficiency Will transfers 2 more units and start B12 replacement ?hematology consult obtained ?acute colitis ?will treat with IV Levaquin and Flagyl day 2 follow blood cultures and clinical course closely, will start clear liquid diet abdominal pain is improving DC IV fluid ?multiple hypo attenuated lesions and spleen concerning for abscess ?continue IV Flagyl and Levaquin as above, check stool studies, id consult, CT abdomen and pelvis showed no lymphadenopathy suggestive of lymphoma ? case discussed with ID she recommend echocardiogram and will order further test ? elevated LFTs? question due to B12 deficiency with a ?mild intermittent asthma? no acute exacerbation ?hypothyroidism continue Synthroid ?DVT prophylaxis with compression boots ?Code status full code ?in my clinical opinion patient will need continued inpatient stay due to acute colitis requiring IV antibiotic and toblood transfusion. Quality Stroke Does the patient have a stroke diagnosis?: No VTE Prior VTE?: No VTE Risk Level:: Medical - moderate - high VTE Device Contraindication: N/A - Device Ordered VTE Drug Contraindication: Treatment Not Indicated
--- NOTE | 2022-05-26 15:35 | P.CNID_ITS ---
History of Present Illness Data of Consult Service Date: 05/26/22 Requesting physician: John Lott Primary Care Provider: Gary Pitts MD HPI Reason for consult: anemia and diarrhea She presents with one week weakness diarrhea and abdominal discomfort 6-7/10 LLQ. She has some nausea and diarrhea nonbloody. She is receiving transfusion. Review of Systems Review of Systems: Yes all other systems are reviewed and are negative PMFSH Past Medical History Medical History Anxiety Asthma HTN (hypertension) Migraine Thyroid disease Family History Family history: reviewed and not pertinent Social History Social History Alcohol intake: never Smoked in Last 30 Days: No Use of substances other than those prescribed or required for medical reasons: No Advance Directives: No Advance Directives Information Provided: Yes service: No Current occupational status: disabled Meds Allergies Allergy/AdvReac Type Severity Reaction Status Date / Time ibuprofen [From MOTRIN] Allergy Mild ITCHING Verified 08/03/21 09:49 aspirin [ASPIRIN] Allergy Unknown RASH Verified 08/03/21 09:49 SEAFOOD Allergy Unknown RASH Uncoded 03/25/20 18:28 Active Medications: Current Medications Acetaminophen (Acetaminophen 325 Mg Tablet) 650 mg PO Q6H PRN PRN Reason: Pain, Mild (Pain Scale 1-3) Cyanocobalamin (Cyanocobalamin (Vitamin B-12) 1,000 Mcg/Ml Vial) 1,000 mcg IM DAILY ON LICENSE OF [facility] Stop: 06/01/22 09:01 Levofloxacin (Levaquin) 500 mg in 100 mls @ 100 mls/hr IV Q24H ON LICENSE OF [facility] Last Infusion: 05/25/22 19:44 Dose: Infused Metronidazole (Flagyl) 500 mg in 100 mls @ 100 mls/hr IV Q8H ON LICENSE OF [facility] Last Infusion: 05/26/22 06:54 Dose: Infused Lactated Ringer's (Lr) 1,000 mls @ 100 mls/hr IVCONT .Q10H ON LICENSE OF [facility] Last Admin: 05/26/22 05:47 Dose: 100 mls/hr Levothyroxine Sodium (Levothyroxine Sodium 125 Mcg Tablet) 125 mcg PO DAILY ON LICENSE OF [facility] Last Admin: 05/26/22 07:37 Dose: 125 mcg Melatonin (Melatonin 3 Mg Tablet) 3 mg PO BEDTIME PRN PRN Reason: Insomnia Morphine Sulfate (Morphine Sulfate 4 Mg/Ml Cartridge) 3 mg IVPUSH Q4H PRN; Protocol PRN Reason: Pain, Severe (Pain Scale 7-10) Ondansetron HCl (Ondansetron Hcl 4 Mg/2 Ml Vial) 4 mg IVPUSH Q8H PRN PRN Reason: Nausea and Vomiting Pharmacy Consult (Consult Rx Perform Med Rec) 1 each MISCELLANE ONCE PRN PRN Reason: Consult order Propranolol HCl (Propranolol Hcl La 60 Mg Cap.Sa.24h) 60 mg PO DAILY ON LICENSE OF [facility]; Protocol Last Admin: 05/26/22 10:46 Dose: Not Given Sodium Chloride (0.9 % Sodium Chloride Flush 3 Ml Syringe) 3 ml IVFLUSH QSHIFT ON LICENSE OF [facility] Last Admin: 05/26/22 09:18 Dose: Not Given Home Medications Medication Instructions Recorded Confirmed Last Taken Type levothyroxine 125 mcg tablet 1 tab PO DAILY 05/25/22 05/25/22 05/25/22 History multivitamin 1 tab PO DAILY 05/25/22 05/25/22 05/25/22 History propranolol 120 mg capsule,24 1 cap PO DAILY 05/25/22 05/25/22 05/25/22 History hr,extended release Physical Exam Vital Signs: Vital Signs: Last Vital Signs Temp 98.4 F 05/26/22 14:45 Pulse 79 05/26/22 14:45 Resp 18 05/26/22 14:45 BP 108/66 05/26/22 14:45 Pulse Ox 98 05/26/22 14:39 O2 Del Method 05/26/22 14:39 BMI result Body Mass Index 29.5 Const: General: cooperative HEENT: Head: Yes normal to inspection Face and sinus: Yes normal facial exam Mouth: Normal oral and palatal mucosa present Teeth and gingiva: dentition normal Eyes: General: appearance normal, both eyes and all related structures Pupils: Equal, round and reactive pupils present Resp: Effort & Inspection: normal respiratory effort Cardio: Rate: regular rate Rhythm: regular rhythm GI: Palpation (GI): Soft to palpation and Tenderness to palpation present (GI) in the LLQ : General: Yes no CVA tenderness Back/Spine/Pelvis: Back: no CVA tenderness Skin: General skin exam: no rashes or lesions noted Neuro: General: moves all extremities Cranial nerves: Yes Equal, round and reactive pupils present Extrem: General: Yes normal to inspection Psych: Appearance: grossly normal Results Labs CBC & Chem 7: 05/26/22 05:44 05/26/22 05:44 Labs: Short CBC 05/26/22 Range/Units 05:44 WBC 2.8 L (4.8-10.8) X10*3/uL Hgb 7.3 L (12.0-16.0) g/dl Hct 21.0 L* (37.0-47.0) % Plt Count 110 L (160-400) X10*3/uL BMP 05/26/22 05:44 Sodium 141 Potassium 4.4 Chloride 108 Carbon Dioxide 27 BUN 13 Creatinine 1.00 Calcium 9.2 Liver Function 05/26/22 Range/Units 05:44 Total Bilirubin 1.8 H (0.0-1.0) mg/dL Direct Bilirubin 0.9 H (0.0-0.5) mg/dL AST 86 H (5-31) U/L ALT 18 (0-31) U/L Alkaline Phosphatase 52 (39-117) U/L Albumin 3.3 L (3.5-5.0) g/dL Urine 05/25/22 Range/Units 16:51 Urine Color Dark Yellow Urine Appearance Hazy Urine pH 5.5 (5.0-9.0) Ur Specific [place] 1.015 (1.005-1.025) Urine Protein 30 (1+) H (Neg-Trace) mg/dL Urine Glucose (UA) Negative (Negative) mg/dL Microbiology Microbiology Results: Microbiology 05/25/22 Unknown Urine clean catch - Urine soni top Urine Culture - Preliminary Gram negative tom Assessment and Plan (1) Hemolytic anemia: Status: Acute There is concern over HUS from shiga toxin producing E coli Also concern over strep pneumonia,salmonella or shigella as causes CMV may also cause. HIV possible but unlikely Vasculitis is unlikely. (2) Colitis: Status: Acute Plan Check HIV as well as blood cultures and urinary panel. Would support hematologic parameter and involve Hematology. Levaquin and flagyl would cover any likely pathogens mentioned above.
[2022-05-26] MEDS: Cyanocobalamin (Vitamin B-12) 1,000 MCG/ML VIAL 1000 MCG IM (16:22)
[2022-05-26] MEDS: 0.9 % Sodium Chloride Flush 3 ML SYRINGE IVFLUSH (16:35)
[2022-05-26] MEDS: levoFLOXacin/D5W 500 MG/100 ML PIGGYBACK 100 MG IV (18:22)
[2022-05-27 03:10] VITALS: BP 121/64; PULSE 78; RESP 18; TEMP 36.2; O2SAT 100
[2022-05-27] MEDS: Lactated Ringers 1,000 ML 100 ML IVCONT (04:26)
[2022-05-27] MEDS: metroNIDAZOLE/NS 500 MG/100 ML PIGGYBACK 100 MG IV ×3 (04:26→19:46)
[2022-05-27 06:48] LABS: Hematocrit 26.6 % (37.0-47.0); Hemoglobin 9.2 g/dl (12.0-16.0); Mean Corpuscular HGB Conc 34.6 g/dl (31.0-35.0); Mean Corpuscular Volume 101.1 fL (80.0-98.0); Mean Platelet Volume 11.2 fL (9.4-12.3); Platelet Count 102 X10*3/uL (160-400); Red Blood Count 2.63 X10*6/uL (4.20-5.50); Red Cell Distribution Width 22.5 % (11.0-16.0); White Blood Count 3.1 X10*3/uL (4.8-10.8)
[2022-05-27 07:06] LABS: Alanine Aminotransferase 17 U/L (0-31); Albumin Level 3.2 g/dL (3.5-5.0); Alkaline Phosphatase 50 U/L (39-117); Aspartate Amino Transferase 71 U/L (5-31); Bilirubin Total 2.1 mg/dL (0.0-1.0); Total Protein 5.7 g/dL (6.5-8.0)
[2022-05-27 07:45] VITALS: BP 119/65; PULSE 74; RESP 17; TEMP 36.1; O2SAT 98
[2022-05-27] MEDS: Levothyroxine Sodium 125 MCG TABLET PO (09:07)
[2022-05-27] MEDS: Propranolol HCL LA 60 MG CAP.SA.24H PO (09:07)
[2022-05-27] MEDS: Cyanocobalamin (Vitamin B-12) 1,000 MCG/ML VIAL 1000 MCG IM (09:08)
[2022-05-27 12:00] VITALS: BP 123/65; PULSE 75; RESP 18; TEMP 35.8; O2SAT 99
--- NOTE | 2022-05-27 12:26 | P.PNIM_ITS ---
Subjective Subjective Date of Service: 05/27/22 Interval History: patient feeling significantly better this morning, denies abdominal pain, no nausea, no vomiting, no diarrhea, denies urinary symptoms of urgency, frequency, no shortness of breath, no chest pain, no palpitation denies HIV risk Review of Systems Review of Systems: Yes all other systems are reviewed and are negative Physical Exam Vital Signs: Vital Signs: Last Vital Signs Temp 96.5 F L 05/27/22 12:00 Pulse 75 05/27/22 12:00 Resp 18 05/27/22 12:00 BP 123/65 05/27/22 12:00 Pulse Ox 99 05/27/22 12:00 O2 Del Method 05/27/22 12:00 BMI result Body Mass Index 29.5 Const: Other: General? awake alert x3, in no acute?distress.? anicteric sclera Neck is?supple no JVD. CVS? regular rate rhythm, Respiratorylungs clear to auscultation, no respiratory distress,no wheeze, no rhonchi. Gastrointestinal abdomen soft,?nontender, bowel sounds audible, no guarding , no?rigidity. Extremities no edema. Neuro nonfocal patient moving all 4 extremity speech clear. Skin no rash musculoskeletal no deformity ?psych appropriate affect Objective Data Active Medications Acetaminophen (Acetaminophen 325 Mg Tablet) 650 mg PO Q6H PRN PRN Reason: Pain, Mild (Pain Scale 1-3) Cyanocobalamin (Cyanocobalamin (Vitamin B-12) 1,000 Mcg/Ml Vial) 1,000 mcg IM DAILY [facility] Stop: 06/01/22 09:01 Last Admin: 05/27/22 09:08 Dose: 1,000 mcg Documented By: TOM Levofloxacin (Levaquin) 500 mg in 100 mls @ 100 mls/hr IV Q24H [facility] Last Infusion: 05/26/22 20:09 Dose: 0 mls/hr Documented By: JUSTINO Metronidazole (Flagyl) 500 mg in 100 mls @ 100 mls/hr IV Q8H [facility] Last Infusion: 05/27/22 05:35 Dose: 0 mls/hr Documented By: JUSTINO Levothyroxine Sodium (Levothyroxine Sodium 125 Mcg Tablet) 125 mcg PO DAILY [facility] Last Admin: 05/27/22 09:07 Dose: 125 mcg Documented By: TOM Melatonin (Melatonin 3 Mg Tablet) 3 mg PO BEDTIME PRN PRN Reason: Insomnia Morphine Sulfate (Morphine Sulfate 4 Mg/Ml Cartridge) 3 mg IVPUSH Q4H PRN; Protocol PRN Reason: Pain, Severe (Pain Scale 7-10) Ondansetron HCl (Ondansetron Hcl 4 Mg/2 Ml Vial) 4 mg IVPUSH Q8H PRN PRN Reason: Nausea and Vomiting Pharmacy Consult (Consult Rx Perform Med Rec) 1 each MISCELLANE ONCE PRN PRN Reason: Consult order Propranolol HCl (Propranolol Hcl La 60 Mg Cap.Sa.24h) 60 mg PO DAILY [facility]; Protocol Last Admin: 05/27/22 09:07 Dose: 60 mg Documented By: TOM Sodium Chloride (0.9 % Sodium Chloride Flush 3 Ml Syringe) 3 ml IVFLUSH QSHIFT [facility] Last Admin: 05/27/22 09:02 Dose: Not Given Documented By: TOM Non-Admin Reason: IV Running Labs CBC & Chem 7: 05/27/22 06:24 05/26/22 05:44 Labs: Laboratory Results - last 24 hr 05/25/22 05/25/22 05/27/22 14:46 14:46 06:24 MCV 101.1 H D MCH 35.0 H MCHC 34.6 RDW 22.5 H Plt Count 102 L MPV 11.2 Absolute Nucleated RBC 0.030 H Nucleated RBC % (auto) 1.0 H Total Bilirubin Direct Bilirubin AST ALT Alkaline Phosphatase Total Protein Albumin Positive FRED Work-up TNP Crossmatch See Detail 05/27/22 06:24 MCV MCH MCHC RDW Plt Count MPV Absolute Nucleated RBC Nucleated RBC % (auto) Total Bilirubin 2.1 H Direct Bilirubin 1.0 H AST 71 H ALT 17 Alkaline Phosphatase 50 Total Protein 5.7 L Albumin 3.2 L Positive FRED Work-up Crossmatch Microbiology Microbiology Results: Microbiology 05/25/22 Unknown Urine Culture - Final Urine clean catch - Urine soni top Escherichia coli Assessment and Plan (1) Pancytopenia: Status: Acute (2) Hemolytic anemia: Status: Acute (3) Colitis: Status: Acute (4) Vitamin B12 deficiency: Status: Acute Plan 51-year-old female patient with past medical history significant for anxiety, asthma, hypertension, migraine, thyroid disease and prior history of iron deficiency anemia previously treated with wrapper stitcher at [facility] and has received iron infusion, last iron studies in June 2021 were unremarkable, last hematocrit was 37.3 in June of 2021 presented to [facility] due to left lower quadrant abdominal discomfort associated with nausea and bloody diarrhea of 1 week duration, diagnosed to have colitis, lab work suggestive of significant a anemia with low WBC and platelet count with elevated LDH, retic count and bilirubin concerning for hemolysis patient will be admitted for continued monitoring and treatment ?acute anemia/ pancytopenia ? hematocrit improved with 3 units of packed RBC no active bleeding noted, patient denies bloody diarrhea no melena, no hematochezia , no hematemesis,no hematuria ?elevated bili, LDH and retic count suggestive of hemolysis question secondary to infection, carl test negative, normal fibrinogen and PTT , normal iron s tudies and folate ?low B12 likely pancytopenia due to B12 deficiency continue B12 supplements ?hematology consult obtained ?acute colitis and?multiple hypoattenuated lesions and spleen concerning for abscess cont. IV Levaquin and Flagyl day 3 follow blood cultures pending, since abdominal pain resolved will advance diet to low residue stool studies not sent since diarrhea resolved, CT abdomen and pelvis showed no lymphadenopathy suggestive of lymphoma question shigella toxin producing E coli causing colitis, UTI and hemolysis ?case discussed with ID she recommend echocardiogram , check HIV, follow final blood cultures E coli UTI sensitive to Levaquin ? elevated LFTs? question due to B12 deficiency with a ?mild intermittent asthma? no acute exacerbation ?hypothyroidism continue Synthroid ?DVT prophylaxis with compression boots ?Code status full code ?in my clinical opinion patient will need continued inpatient stay due to acute colitis , UTI requiring IV antibiotic, also pancytopenia need close CBC follow- up, awaiting final blood cultures Quality Stroke Does the patient have a stroke diagnosis?: No VTE Prior VTE?: No VTE Risk Level:: Medical - moderate - high VTE Device Contraindication: N/A - Device Ordered VTE Drug Contraindication: Treatment Not Indicated
[2022-05-27 15:42] VITALS: BP 140/71; PULSE 60; RESP 18; TEMP 36.1; O2SAT 99
[2022-05-27] MEDS: 0.9 % Sodium Chloride Flush 3 ML SYRINGE IVFLUSH (16:25)
[2022-05-27] MEDS: levoFLOXacin/D5W 500 MG/100 ML PIGGYBACK 100 MG IV (17:59)
[2022-05-27 19:11] VITALS: BP 133/71; PULSE 80; RESP 17; TEMP 36.4; O2SAT 99
[2022-05-28] VITALS: BP 139/68; PULSE 78; RESP 18; TEMP 36.6; O2SAT 98
[2022-05-28 03:31] VITALS: BP 119/65; PULSE 77; RESP 16; TEMP 36.1; O2SAT 98
[2022-05-28] MEDS: metroNIDAZOLE/NS 500 MG/100 ML PIGGYBACK 100 MG IV (05:55)
[2022-05-28 06:23] LABS: Hematocrit 28.2 % (37.0-47.0); Hemoglobin 9.6 g/dl (12.0-16.0); Mean Corpuscular Volume 102.9 fL (80.0-98.0); Mean Platelet Volume 11.1 fL (9.4-12.3); NRBC Pct Auto 0.6 /100WBC (0.0-0.2); Red Blood Count 2.74 X10*6/uL (4.20-5.50); Red Cell Distribution Width 22.3 % (11.0-16.0); White Blood Count 3.2 X10*3/uL (4.8-10.8)
[2022-05-28 06:25] LABS: Platelet Count 91 X10*3/uL (160-400)
[2022-05-28 06:50] LABS: Anion Gap 11 (12-20); Blood Urea Nitrogen 10 mg/dL (9-16); Calcium 9.1 mg/dL (8.4-10.2); Carbon Dioxide 26 mmol/L (22-29); Chloride 108 mmol/L (96-108); Creatinine Clr Calc Pharmacy 59.1; Estimated Glomerular Filt Rate 59; Glucose Random 91 mg/dL (60-115); Sodium 141 mmol/L (135-145)
[2022-05-28 07:58] VITALS: BP 145/67; PULSE 74; RESP 16; TEMP 35.9; O2SAT 98
[2022-05-28 08:13] LABS: Alanine Aminotransferase 19 U/L (0-31); Albumin Level 3.2 g/dL (3.5-5.0); Alkaline Phosphatase 65 U/L (39-117); Aspartate Amino Transferase 72 U/L (5-31); Bilirubin Direct 0.6 mg/dL (0.0-0.5); Bilirubin Total 1.2 mg/dL (0.0-1.0); Total Protein 5.9 g/dL (6.5-8.0)
[2022-05-28] MEDS: Propranolol HCL LA 60 MG CAP.SA.24H PO (08:32)
[2022-05-28] MEDS: Cyanocobalamin (Vitamin B-12) 1,000 MCG/ML VIAL 1000 MCG IM (08:32)
[2022-05-28] MEDS: Levothyroxine Sodium 125 MCG TABLET PO (08:32)
[2022-05-28] MEDS: 0.9 % Sodium Chloride Flush 3 ML SYRINGE IVFLUSH (08:37)
--- NOTE | 2022-05-28 11:35 | P.DS_ITS ---
DS: Providers Provider Date of Service: 05/29/22 Date of admission: 05/25/22 16:50 Primary care physician: Gary Pitts MD Consults: 05/25/22 16:54 Consult to Infectious Diseases Routine Consulting Provider: Jaja Matta Reason for consultation: colitis /spleen lesions Has provider been notified: No 05/25/22 16:55 Consult to Hematology / Oncology Routine Consulting Provider: Lorna Saldana Reason for consultation: thrombocytopenia Has provider been notified: Yes DS: Diagnosis Discharge Diagnosis (1) Pancytopenia: Status: Acute (2) Hemolytic anemia: Status: Acute (3) Colitis: Status: Acute (4) Vitamin B12 deficiency: Status: Acute DS: Summary Hospital Course Hospital Course: history of presenting illness Date of Service: 05/25/22 Attending physician on admission: John Lott Chief Complaint:? abdominal pain / nonbloody diarrhea ?51-year-old female patient with past medical history of asthma, migraine, hypertension, hypothyroidism, history of iron deficiency anemia, status post thyroidectomy, history of sciatica presented to [facility] due to left lower quadrant abdominal pain of 1 day duration associated with nausea, and mucousy nonbloody diarrhea patient is unable to keep any food down due to recurrent episodes of diarrhea she denies associated fever, chills, rigors she denies any sick contacts she denies recent history of travel, denies recent use of antibiotics, patient lives at home with family, no other family member with similar symptoms, workup in the emergency room showed significant anemia hemoglobin 7.4, hematocrit 20.7, MCV 115, elevated retic count, normal iron studies, magnesium 1.5, LDH 3152, AST 120, total bili 2.3, CT abdomen and pelvis showed colitis involving the descending colon, sigmoid colon and rectum, splenomegaly with multiple hypoattenuating foci throughout the splenic parenchyma nonspecific, splenic abscesses can be considered, nonobstructing left renal calculi no adenopathy was noted, 1 unit of packed RBC ordered by ED physician patient is now being admitted to [facility] due to colitis, likely hemolytic anemia as well as? splenic lesion concerning for infection. hospital course 51-year-old female patient with past medical history significant for anxiety, asthma, hypertension, migraine, thyroid disease and prior history of iron deficiency anemia previously treated with supervisor silvering department at [facility] and has received iron infusion, last iron studies in June 2021 were unremarkable, last hematocrit was 37.3 in June of 2021 presented to [facility] due to left lower quadrant abdominal discomfort associated with nausea and bloody diarrhea of 1 week duration, diagnosed to have colitis, lab work suggestive of significant anemia with low WBC and platelet count with elevated LDH, retic count and bilirubin concerning for hemolysis patient admitted for continued monitoring and treatment Acute anemia ( no acute blood loss) / pancytopenia, patient admitted to medical floor received 3 units of packed RBC hemoglobin improved patient noted to have no active bleeding, she denied bloody diarrhea, no melena, no hematochezia no hematemesis, no hematuria, she was noted to have?elevated bili, LDH and retic count suggestive of hemolysis question secondary to intramedullary b12 def ,infection,? carl test negative, normal fibrinogen and PTT , normal iron studies and folate,?low B12 likely pancytopenia due to B12 deficiency, patient received intramuscular B12 for 2 days she is recommended to have outpatient follow-up with supervisor silvering department Dr. Saldana for follow-up CBC and continue treatment for B12 deficiency, patient has history of iron deficiency anemia due to heavy periods in the past, was followed at [facility] with Dr. Garcia and has required IV iron infusions due to intolerance to oral iron, since she underwent bilateral oophorectomies and not having heavy periods is still with low iron she was referred for Gastroenterology follow-up, recommend continued outpatient follow-up with Hematology and gastroenterology. abnormal abdominal CT with multiple hypoattenuated lesion in spleen recommend outpatient follow-up with Hematology with repeat imaging studies, recommend outpatient echocardiogram. ? ?acute colitis and?multiple hypoattenuated lesions and spleen concerning for abscess, patient treated with IV Levaquin and Flagyl , abdominal pain resolved patient afebrile blood culture showed no growth patient diet was advance,?stool studies not sent since diarrhea resolved,? CT abdomen and pelvis showed no lymphadenopathy suggestive of lymphoma,?question shigella toxin producing E coli causing colitis, UTI and hemolysis ?HIV testis pending, ?E coli UTI continue antibiotic as above Elevated LFTs? question due to? hemolysis repeat LFTs are trending down, no nausea no vomiting tolerating diet recommend outpatient follow-up with PCP and Hematology ?mild intermittent asthma? no acute exacerbation ?hypothyroidism continue Synthroid Time Spent with Patient Time attestation: Total time spent providing and/or coordinating discharge services: Discharge coordination time: Greater than 30 minutes Quality: Safe Use of Opioids Does Pt have an Active Cancer Diagnosis on the Problem List?: No Quality: Stroke Does the patient have a stroke diagnosis?: No Physical Exam Vital Signs: Vital Signs: Last Vital Signs Temp 96.7 F L 05/28/22 07:58 Pulse 74 05/28/22 07:58 Resp 16 05/28/22 07:58 BP 145/67 H 05/28/22 07:58 Pulse Ox 98 05/28/22 07:58 O2 Del Method 05/28/22 07:58 BMI result Body Mass Index 29.5 Const: Other: General? awake alert x3, in no acute?distress.? anicteric sclera Neck is?supple no JVD. CVS? regular rate rhythm, Respiratorylungs clear to auscultation, no respiratory distress,no wheeze, no rhonchi. Gastrointestinal abdomen soft,?nontender, bowel sounds audible, no guarding , no?rigidity. Extremities no edema. Neuro nonfocal patient moving all 4 extremity speech clear. Skin no rash musculoskeletal no deformity psych appropriate affect DS: Data Data Completed and Pending Labs on day of discharge: Laboratory Results - last 24 hr 05/28/22 05/28/22 06:12 06:12 WBC 3.2 L RBC 2.74 L Hgb 9.6 L Hct 28.2 L MCV 102.9 H MCH 35.0 H MCHC 34.0 RDW 22.3 H Plt Count 91 L MPV 11.1 Absolute Nucleated RBC 0.020 H Nucleated RBC % (auto) 0.6 H Sodium 141 Potassium 4.0 Chloride 108 Carbon Dioxide 26 Anion Gap 11 L BUN 10 Creatinine 0.99 Estim Creat Clear Calc 59.1 Estimated GFR 59 Random Glucose 91 Calcium 9.1 Total Bilirubin 1.2 H Direct Bilirubin 0.6 H AST 72 H ALT 19 Alkaline Phosphatase 65 Total Protein 5.9 L Albumin 3.2 L Preliminary micro results at discharge 05/26/22 12:00 Blood Culture - Preliminary Blood - Venous No growth after 24 hours. 05/26/22 12:00 Blood Culture - Preliminary Blood - Venous No growth after 24 hours. Discharge Plan Discharge Anticipated Discharge Date/Time: 05/28/22 11:26 Patient Disposition: Home, Self-Care Discharge Diagnosis: acute colitis pancytopenia vitamin B12 deficiency E coli UTI Referrals: Gary Pitts MD [Primary Care Provider] - 1 Week Discharge Medications: New propranolol 60 mg Capsule,Extended Release 24 Hr 60 mg PO DAILY Qty: 30 0RF Protocol: Hold for SBP/HR < HOLD for SBP < : 90 HOLD for HR < : 60 levofloxacin 500 mg tablet 500 mg PO DAILY 3 Days Qty: 3 0RF metronidazole 500 mg tablet 500 mg PO Q12H Qty: 6 0RF folic acid 1 mg Tablet 1 mg PO DAILY Qty: 90 3RF Continued multivitamin Tablet 1 tab PO DAILY levothyroxine 125 mcg tablet 1 tab PO DAILY Discontinued propranolol 120 mg capsule,extended release 24 hr 1 cap PO DAILY Discharge Orders: Discharge Order (Routine); Ordered 05/28/22 Ordered By: John Lott Diet: Advance to usual diet Activity on Discharge: As tolerated Stand Alone Forms: Patient Portal Discharge page Care Plan Goals: B12 deficiency continue B12 shots follow up with Dr. Saldana in Oncology to make an appointment tomorrow and check CBC acute colitis improved take antibiotic as prescribed acute UTI take antibiotic as prescribed dose of propranolol reduced to 60 mg daily follow blood pressure closely pancytopenia follow CBC spleen lesions outpatient follow-up with Dr. Saldana for repeat imaging studies and echocardiogram return to [facility] if noted to have fever, chills, abdominal pain. intrinsic factor antibody pending Health Concerns: continue all medications as prescribed Plan of Treatment: call Dr. Saldana office at [facility] tomorrow morning to make an appointment for follow-up CBC and B12 deficiency and also for abnormal CT abdomen follow-up with primary care physician Assessment: as above Discharge Date/Time: 05/28/22 13:29
[2022-05-28 11:46] VITALS: BP 132/73; PULSE 78; RESP 16; TEMP 36.8; O2SAT 96
--- NOTE | 2022-05-28 12:50 | MHC.CM.PN ---
PT WILL DC HOME TODAY WITH NO SERVICES PT TO ARRANGE TRANSPORT
--- NOTE | 2022-05-28 13:45 | PM.HEMONCCN ---
Subjective - Subjective Chief complaint: Consult for: Anemia. Patient: new to practice Consult date: 05/28/22 Requesting Physician: NIDIA. Primary Care Provider: Gary Sullivan MD Medical Summary: DIAGNOSIS: ANEMIA. HPI - Consult Narrative Reason for consult: Consult for: Anemia. Narrative: Tahmina Cotton is a pleasant 51 year old lady, who presented to [facility] on 05/25, due to left lower quadrant abdominal pain of one day duration. This was associated with nausea, and mucousy nonbloody diarrhea. She was unable to keep any food down due to recurrent episodes of diarrhea. She denied associated fever, chills, rigors. No sick contacts, no recent history of travel. Denied recent use of antibiotics. Patient lives at home with family, no other family member with similar symptoms. Workup in the emergency room showed: Significant anemia: Hemoglobin 7.4, hematocrit 20.7, MCV 115, elevated retic count, normal iron studies, , LDH 3152, Tl bili 2.3, AST 120. magnesium 1.5. CT abdomen and pelvis showed colitis involving the descending colon, sigmoid colon and rectum, splenomegaly with multiple hypoattenuating foci throughout the splenic parenchyma nonspecific, splenic abscesses can be considered, nonobstructing left renal calculi no adenopathy was noted. She recieved one unit of packed RBCs in ED. Concern was colitis, hemolytic anemia, as well as splenic lesion concerning for infection. Past medical history of: 1. Asthma, 2. migraine, 3. hypertension, 4. hypothyroidism, 5. history of iron deficiency anemia, 6. status post thyroidectomy, 7. history of sciatica. She was seen by ID while in house. Her recommendation: There is concern over HUS from shiga toxin producing E coli. Also concern over strep pneumonia,salmonella or shigella as causes. CMV may also cause. HIV possible but unlikely. Vasculitis is unlikely. (2) Colitis: Acute Plan Check HIV as well as blood cultures and urinary panel. Would support hematologic parameter and involve Hematology. Levaquin and flagyl would cover any likely pathogens mentioned above. Review of Systems - Constitutional Reports system reviewed and no additional complaints, except as documented - Eyes Reports system reviewed and no additional complaints, except as documented - ENT Reports system reviewed and no additional complaints, except as documented - Cardiovascular Reports system reviewed and no additional complaints, except as documented - Respiratory Reports no additional respiratory complaints - Gastrointestinal Reports system reviewed and no additional complaints, except as documented - Genitourinary Reports no additional female genitourinary complaints - Musculoskeletal Reports system reviewed and no additional complaints, except as documented - Integumentary/Breasts Skin/Breast: Reports no additional skin complaints - Neurologic Reports system reviewed and no additional complaints, except as documented - Psychiatric Reports system reviewed and no additional complaints, except as documented - Endocrine Reports no additional endocrine complaints - Hematologic/Lymphatic Reports system reviewed and no additional complaints, except as documented - Allergic/Immunologic Reports system reviewed and no additional complaints, except as documented Oncology Screenings - ECOG Performance Status ECOG Performance Status: 1 [facility] Medical History: Medical History (Last Reviewed 05/26/22 @ 15:36 by Jaja Matta MD) Anxiety Asthma HTN (hypertension) Migraine Thyroid disease Functional capacity: independent ambulation Patient : No Family history: reviewed and not pertinent Social History: Social History (Last Reviewed 05/27/22 @ 08:30 by Marina Tian) Living Situation History: Household Members: Significant Other Household Members: Children Household Members Other:: 5 Housing: Apartment Do you presently have visiting nurse or other home services: No Tobacco History: Patient Tobacco Use Status: Former Tobacco user Occupation Assessmet: service: No Current occupational status: disabled Home Medications and Allergies Home Medications Medication Instructions Recorded Confirmed Type levothyroxine 125 mcg tablet 1 tab PO DAILY 05/25/22 05/25/22 History multivitamin 1 tab PO DAILY 05/25/22 05/25/22 History Allergies Allergy/AdvReac Type Severity Reaction Status Date / Time ibuprofen [From MOTRIN] Allergy Mild ITCHING Verified 08/03/21 09:49 aspirin [ASPIRIN] Allergy Unknown RASH Verified 08/03/21 09:49 SEAFOOD Allergy Unknown RASH Uncoded 03/25/20 18:28 Physical Exam Vital signs: Vital Signs Temp 98.3 F 05/28/22 11:46 Pulse 78 05/28/22 11:46 Resp 16 05/28/22 11:46 BP 132/73 05/28/22 11:46 Pulse Ox 96 05/28/22 11:46 O2 Del Method 05/28/22 11:46 Intake & Output 05/27/22 05/28/22 05/28/22 18:59 06:59 18:59 Intake Total 1100 / 1660 560 / 1660 100 / 100 Balance 1100 / 1660 560 / 1660 100 / 100 Intake: Intake, Oral Amount 360 / 360 Intake, IV Amount 1100 / 1300 200 / 1300 100 / 100 levoFLOXacin/D5W 500 mg In 100 100 / 100 ml @ 100 mls/hr IV Q24H DIANE Rx# :[id number] metroNIDAZOLE/NS 500 mg In 100 100 / 200 100 / 200 100 / 100 ml @ 100 mls/hr IV Q8H DIANE Rx#: [id number] Lactated Ringers 1,000 ml @ 100 1000 / 1000 mls/hr IVCONT .Q10H [facility] Rx#: [id number] Other: Meal Refused No NPO No Dinner % Eaten 50% Number of Unmeasured Voids 1 Urine Bathroom Bathroom Last Bowel Movement 05/27/22 Weight 70.76 kg - Constitutional Present: mild distress - Routine HEENT Exam Head: Present: normal inspection, normocephalic ENT: Present: mucous membranes moist - Routine Neck Exam Present: supple - Routine Abdominal Exam Present: tenderness - Routine Extremities Exam Present: nontender - Routine Skin Exam Present: intact - Routine Neurological Exam Present: alert, oriented X3, moving all extremities - Detailed Neurological Exam: Coma Scale Eye Opening: Spontaneous (4) Verbal Response: Oriented (5) Motor Response: Obeys commands (6) [place] Coma Scale Total: 15 - Routine Psychiatric Exam Present: normal affect Hem/Onc Consult Result - Labs CBC & Chem 7: 05/28/22 06:12 05/28/22 06:12 Labs: Short CBC 05/28/22 Range/Units 06:12 WBC 3.2 L (4.8-10.8) X10*3/uL Hgb 9.6 L (12.0-16.0) g/dl Hct 28.2 L (37.0-47.0) % Plt Count 91 L (160-400) X10*3/uL BMP 05/28/22 06:12 Sodium 141 Potassium 4.0 Chloride 108 Carbon Dioxide 26 BUN 10 Creatinine 0.99 Calcium 9.1 Liver Function 05/28/22 Range/Units 06:12 Total Bilirubin 1.2 H (0.0-1.0) mg/dL Direct Bilirubin 0.6 H (0.0-0.5) mg/dL AST 72 H (5-31) U/L ALT 19 (0-31) U/L Alkaline Phosphatase 65 (39-117) U/L Albumin 3.2 L (3.5-5.0) g/dL Assessment and Plan Patient Active problem list reviewed?: Yes (1) Anemia Status: Acute Assessment and plan: This is a pleasant 51-year-old lady, who presented on 05/25, with abdominal pain. CT scan of the abdomen revealed: 1. Colitis involving the descending colon, sigmoid colon, and rectum. This is greatest at the sigmoid colon and rectum. 2. Splenomegaly with multiple hypoattenuating foci throughout the splenic parenchyma. This is nonspecific. In an infectious setting, splenic abscesses must be considered. 3. Nonobstructing left renal calculi. Patient was noted to be rather anemic, actually pancytopenic: CBC: 05/25: WBC 4.6, HGB 7.4, HCT 20.7, MCV 115.6, PLt 139. She received 2 units of blood. Anemia is macrocytic. DIFFERENTIAL DIAGNOSIS: 1. B12/FOLATE DEFICIENCY: Is most likely. 2. HEMOLYTIC ANEMIA: Is in the differential. 3. MDS: Can cause macrocytic anemia. 4. ANEMIA OF CHRONIC DISEASE: Also a possibility. PLAN: Further workup was initiated, to rule out the above. Retic: 3.7. LDH: 3152. Kristan test: Negative. Iron studies: 99/278/36. B12:< 148, folate: 17.3. Workup is consistent with megaloblastic anemia due to B12 deficiency. She most likely has pernicious anemia. Intrinsic factor antibody is pending. She has been started on B12 injections, after she recieved a couple of units of PRBCs. CBC from today: WBC 3.2, HGB 9.6, HCT 28.2, PLT 91. She will continue on the B12 injections as an outpatient. These will be arranged in Oncology. Will give her folate is well since that is a cofactor. Thank you, Cc: (2) Splenic lesion Status: Acute Assessment and plan: 51-year-old lady presented with abdominal pain. Noted to have severe anemia. So noted to have splenic lesions. DIFFERENTIAL DIAGNOSIS: 1. INFECTIOUS DISEASE: microabscesses, fungal disease. 2. INFLAMMATORY PROCESSES. 3. PRIMARY VASCULAR PROCESS. 4. LYMPHOID NEOPLASM. 5. METASTATIC DISEASE: from breast,lung, vary, melanoma, colon cancer. 6. VASCULAR PROCESS: Splenic infarcts. 7. SYSTEMIC DISEASES. She has been started on antibiotics to cover for infectious disease. PLAN: Will proceed with further evaluation based upon her response. Will workup splenic lesions as an outpatient. Thank you, Cc: rosanne sullivan. - Time Spent With Patient Time Spent with Patient (in minutes): 30
[2022-05-29 05:07] LABS: HIV AB/AG Nonreactive (Nonreactive); HIV Num 1 0.08 S/CO (0.00-0.99)
[2022-05-30 05:32] LABS: Haptoglobin <8 mg/dL (43-212)
[2022-06-02 22:57] LABS: Intrinsic Factor Antibodies Positive (Negative)
== END 2022-05-28 13:29 | disposition home or self-care (01) | DRG 248 ==
LOC: HO.ED 15:46 → HO.EDOVER 16:57 → HO.S3 05-26 14:37
PROVIDERS: Physician Assistant; Admitting Provider Hospitalist; Emergency Provider Emergency Medicine Emergency Medical Services; PCP Pediatrics; Visit Provider Hospitalist
DX: A04.4 Other intestinal Escherichia coli infections (principal); D61.818 Other pancytopenia; D58.9 Hereditary hemolytic anemia, unspecified; D73.3 Abscess of spleen; F41.9 Anxiety disorder, unspecified; N39.0 Urinary tract infection, site not specified; B96.20 Unspecified Escherichia coli [E. coli] as the cause of diseases classified elsewhere; E53.8 Deficiency of other specified B group vitamins; J45.20 Mild intermittent asthma, uncomplicated; Z20.822 Contact with and (suspected) exposure to COVID-19; Z91.013 Allergy to seafood; Z88.6 Allergy status to analgesic agent; Z79.890 Hormone replacement therapy; Z79.899 Other long term (current) drug therapy
CPT/HCPCS: 36415; 74177; 80048; 80076; 81001; 81003; 82607; 82746; 83010; 83540; 83615; 83690; 83735; 85025; 85027; 85045; 85379; 85384; 85730; 86140; 86340; 86850; 86880; 86900; 86901; 86923; 87040; 87086; 87088; 87186; 87389; 87635; 99285; J1956; J3475; P9016; Q9967